=== PATIENT | female | born 1950 | race Caucasian/White ===

== ENCOUNTER → 2018-02-13 | Outpatient (CLI) | payer MEDICARE, OTHER ==
[~2018-02-13] MED LIST: ASPIRIN81 M2 PO; ATENOLOL 100MG100 M2 PO; CELEXA40 MG PO; IBUPROFEN 800800 M1 PO; MIRALAX255 GM PO; PROTONIX40 M2 PO; SIMVASTATIN20 MG PO
== END ==
LOC: M.RAD 02-11 10:40
DX: Z12.31 Encounter for screening mammogram for malignant neoplasm of breast (principal); I10 Essential (primary) hypertension; E78.5 Hyperlipidemia, unspecified; F41.9 Anxiety disorder, unspecified; F32.9 Major depressive disorder, single episode, unspecified; Z78.0 Asymptomatic menopausal state

== ENCOUNTER 2018-07-31 14:13 | Emergency (ER) | payer MEDICARE, OTHER ==
[~2018-07-31] VITALS: Ht 167.6 cm; Wt 79.8 kg
[2018-07-31] MEDS ORDERED: AUGMENTIN 875-1 EACH PO (15:44)
[2018-07-31] MEDS ORDERED: HYDROXYZINE HCL25 M2 PO (15:44)
[2018-07-31] MEDS ORDERED: PREDNISONE 20 M20 M1 PO (15:44)
[2018-07-31 15:55] VITALS: BP 127/67
== END 2018-07-31 15:56 | disposition home or self-care (01) ==
LOC: M.ERS 14:13
DX: L29.9 Pruritus, unspecified (principal); T37.3X5A Adverse effect of other antiprotozoal drugs, initial encounter; F32.9 Major depressive disorder, single episode, unspecified; F41.9 Anxiety disorder, unspecified; E78.00 Pure hypercholesterolemia, unspecified; Z88.8 Allergy status to other drugs, medicaments and biological substances; Y92.89 Other specified places as the place of occurrence of the external cause

== ENCOUNTER 2018-08-01 11:57 | Emergency (ER) | payer MEDICARE, OTHER ==
[~2018-08-01] VITALS: Ht 167.6 cm; Wt 79.8 kg
[~2018-08-01 11:57] MED LIST changes: +AUGMENTIN 875-1 EACH PO; +HYDROXYZINE HCL25 M2 PO; +PREDNISONE 20 M20 M1 PO
[2018-08-01 13:50] VITALS: BP 126/81
== END 2018-08-01 13:50 | disposition home or self-care (01) ==
LOC: M.ERS 11:57
DX: L29.9 Pruritus, unspecified (principal); T37.3X5A Adverse effect of other antiprotozoal drugs, initial encounter; E78.00 Pure hypercholesterolemia, unspecified; F32.9 Major depressive disorder, single episode, unspecified; F41.9 Anxiety disorder, unspecified; Z88.8 Allergy status to other drugs, medicaments and biological substances; Y92.89 Other specified places as the place of occurrence of the external cause

== ENCOUNTER → 2018-08-05 | Outpatient (CLI) | payer MEDICARE, OTHER | LOC: M.CT 07-21 11:15 → M.RAD 07-21 11:15 | DX: Z13.820 Encounter for screening for osteoporosis (principal); Z78.0 Asymptomatic menopausal state ==

== ENCOUNTER → 2019-02-17 | Outpatient (CLI) | payer MEDICARE, OTHER | LOC: M.RAD 09:56 | DX: Z12.31 Encounter for screening mammogram for malignant neoplasm of breast (principal) ==

== ENCOUNTER → 2021-05-12 | Outpatient (CLI) | payer OTHER | LOC: M.CT 10:17 | PROVIDERS: ATTEND Family Medicine | DX: Z13.6 Encounter for screening for cardiovascular disorders (principal) ==

== ENCOUNTER → 2021-05-12 | Outpatient (CLI) | payer MEDICARE, OTHER | LOC: M.RAD 10:21 | PROVIDERS: ATTEND Family Medicine | DX: Z12.31 Encounter for screening mammogram for malignant neoplasm of breast (principal) ==

== ENCOUNTER → 2021-08-25 | Outpatient (CLI) | payer MEDICARE, OTHER ==
--- NOTE | 2021-08-25 17:09 | CARDNUC ---
[place] [address] CARDIAC NUCLEAR IMAGING REPORT Name: ISAKJOANNVIVIANA BAHENA Room: [facility]#: [id number] Admission: 08/25/21 Attend Phys: Gabe Cummins, Discharge: Date of : 50 Date of Service: 08/25/21 1709 Report #: [id number] THIS REPORT FOR: cc: Melody Blackman Linda J. DO Liston, Michael J. MD [facility] ~ APPROVED REPORT Imaging Protocol: Stress Tc-99m/Rest Tc-99m 1 day Study performed: 08/25/2021 08:58:35 Indication: high calcium score Patient Location: Out-Patient Stress Nurse: Martha Morales RN Ht: 5 ft 6 in Wt: 155 lbs BSA: 1.79 m2 BMI: 25.01 Medical History Medical History: Diabetes, HTN, Hyperlipidemia Medications: atenolol, rosuvastatin, zetia, asa-81 Allergies: flagyl, norco, sulfa Cardiac Risk Factors: Age, DM, FHX of CAD, HTN, Hyperlipidemia Exercise History: Sedentary Meds Held (24 hrs): atenolol Resting Data Rest SPECT myocardial perfusion imaging was performed in supine position 30 minutes following the intravenous injection of 11.5 mCi of Tc-99m Sestamibi. Time of rest injection: 07:50 The images were gated to evaluate regional wall motion and calculate left ventricular ejection fraction. Administration Route: IV Administration Site: Right Pharmacologic Stress Pharmacologic stress test was performed by injecting Regadenoson 0.4 mg IV push over 10-15 seconds immediately followed by the intravenous injection of 30.5 mCi of Tc-99m Sestamibi. Time of stress injection: 09:00 Administration Route: IV Administration Site: [place] [address] CARDIAC NUCLEAR IMAGING REPORT Name: JOANN PARISI [id number] Admission: 08/25/21 Attend Phys: Gabe Cummins, Discharge: Date of : 50 Date of Service: 08/25/21 1709 Report #: [id number] Heart Rate at time of stress injection: 121 bpm. Gated Stress SPECT was performed 45 minutes after stress injection. The images were gated to evaluate regional wall motion and calculate left ventricular ejection fraction. Prone imaging was performed. Stress Test Details Stress Test: Pharmacologic stress testing performed using 0.4 mg of regadenoson per 5 mL given IV over 10 seconds. Reason for pharmacologic stress test: physical limitation. HR Max Heart Rate (APMHR): 149 bpm Resting HR: 87 bpm Target HR (85% APMHR): 126 bpm Max HR Achieved: 122 bpm % of APMHR: 81 Recovery HR: 79 bpm BP Resting BP: 162/91 mmHg Max BP: 107/68 mmHg Recovery BP: 126/78 mmHg ECG Resting ECG: Sinus Rhythm Stress ECG: Sinus Tachycardia ST Change: None Arrhythmia: None Recovery ECG: Sinus Rhythm Recovery ST Change: None Recovery Arrhythmia: None Clinical Reason for Termination: Completed protocol The patient tolerated Lexiscan infusion without significant cardiac symptoms. Nurse Comments pt has essential tremors and cannot walk on treadmill Stress ECG Conclusion The baseline twelve-lead EKG shows sinus rhythm with no significant ST segment or T wave abnormality. EKGs obtained during and post Lexiscan stress show sinus rhythm and sinus tachycardia with no significant ST segment or T wave changes when [place] [address] CARDIAC NUCLEAR IMAGING REPORT Name: THAD PARISIVIVIANA BAHENA Room: [facility]#: [id number] Admission: 08/25/21 Attend Phys: Gabe Cummins, Discharge: Date of : 50 Date of Service: 08/25/21 1709 Report #: [id number] Study Quality Study: Good Artifact: No artifact Study Data At rest, the left ventricular ejection fraction was 92%.. Post stress, the left ventricular ejection was 71%.. TID = 1.12. Perfusion Perfusion images obtained at rest and post Lexiscan stress show uniform uptake of the radioisotope throughout the myocardium. There were no defects to suggest infarct or ischemia. Wall Motion Normal left ventricular wall motion. Nuclear Conclusion ECG Findings: negative for ischemia Clinical Findings: negative for ischemia Nuclear Findings: negative for ischemia Exercise Capacity: not assessed Left Ventricular Function: normal Risk Study: low Perfusion images show no defect to suggest infarct or ischemia. Left ventricular systolic function appears normal on gated studies. This is a low risk study. <Conclusion> The baseline twelve-lead EKG shows sinus rhythm with no significant ST segment or T wave abnormality. EKGs obtained during and post Lexiscan stress show sinus rhythm and sinus tachycardia with no significant ST segment or T wave changes when compared to baseline. <ELECTRONICALLY SIGNED> By: Gabe Cummins MD, FACC 08/25/211708 08 08 Gabe Cummins MD, FACC /INF
== END ==
LOC: M.NUC 07-17 15:51 → M.CRD 08-11 08:00 → M.NUC 07:30
PROVIDERS: ATTEND Internal Medicine Cardiovascular Disease
DX: I25.10 Atherosclerotic heart disease of native coronary artery without angina pectoris (principal); R00.0 Tachycardia, unspecified